=== PATIENT | male | born 1965 | race Caucasian/White ===

== ENCOUNTER 2018-11-29 08:59 | Outpatient (CLI) | payer OTHER ==
--- NOTE | 2018-11-29 10:14 | RAD ---
MRI SCREENING ORBITS 1 VIEW: HISTORY: MRI safety clearance. History of working with metal. FINDINGS/IMPRESSION: No metallic foreign bodies are seen over either orbit. POS: [facility]
--- NOTE | 2018-11-29 11:04 | MRI ---
MRI OF RIGHT SHOULDER PERFORMED WITHOUT CONTRAST ENHANCEMENT: HISTORY: Right shoulder pain. Pain began in August when the patient was lifting a generator. FINDINGS: There are edema changes associated with the AC joint and irregularity to the distal end of the clavic le suggesting that this possibly represents an older fracture. There does appear to be some edema ch antonio associated with the distal end of the clavicle. The joint appears slightly widened, but there i s otherwise normal alignment and the coracoclavicular ligament is intact. Edema change tracks anteri placido from this level. The underlying supra- and infraspinatus tendons are intact. Subscapularis muscle and tendon are also intact and the biceps tendon is normal in position within the bicipital groove. Labrum is not well assessed on this examination; however, there are findings suspicious for a SLAP-ty pe tear of the posterior superior labrum. The inferior glenohumeral ligament is intact. IMPRESSION: 1. Moderate edema change associated with the acromioclavicular joint. This would indicate that poss ibly there has been an acromioclavicular separation. There is also irregularity to the distal end of the clavicle and some edema change suggesting a fracture. 2. Intact rotator cuff. 3. Findings suspicious for a superior labrum anterior to posterior-type lesion of the posterior supe rior labrum better assessed with MR arthrography. POS: [facility]
== END 2018-11-29 09:00 | disposition home or self-care (01) ==
LOC: BICMRI 08:59
PROVIDERS: ATTEND Orthopaedic Surgery
DX: S43.001A Unspecified subluxation of right shoulder joint, initial encounter (principal)
CPT/HCPCS: 70210

== ENCOUNTER 2021-11-14 12:30 | Inpatient (IN) | payer OTHER ==
[2021-12-01] MEDS ORDERED: Ketorolac Tromethamine 30 MG/ML VIAL ONE ×2 (06:23→07:39)
[2021-12-01] MEDS ORDERED: Acetaminophen 500 MG TAB ONE (06:23)
[2021-12-01] MEDS ORDERED: cefOXitin Sodium/Dextrose 2 GM/50 ML BAG ONE ×2 (06:24→09:07)
[2021-12-01] MEDS ORDERED: Xylocaine 1% w/ Epi 1:100K 10 ML VIAL ONE (06:39)
[2021-12-01] MEDS ORDERED: Bupivacaine 0.25% 10 ML VIAL ONE (06:39)
[2021-12-01] MEDS ORDERED: Iothalamate Meglumine 60% 50 ML VIAL FS ONE (06:39)
[2021-12-01] MEDS ORDERED: Fentanyl 100 MCG/2 ML VIAL ONE ×5 (06:54→15:51)
[2021-12-01] MEDS ORDERED: Midazolam HCl 2 mg/2 ml Vial ONE (06:54)
[2021-12-01] MEDS ORDERED: Lidocaine 1% (PF) 30 ML VIAL ONE (07:00)
[2021-12-01] MEDS ORDERED: Glycopyrrolate 0.2 MG/ML 5 ML SYRINGE ONE (07:39)
[2021-12-01] MEDS ORDERED: PROPOFOL 200 MG/20 ML VIAL ONE (07:39)
[2021-12-01] MEDS ORDERED: Ondansetron PF 4 MG/2 ML Vial ONE ×2 (07:39→18:43)
[2021-12-01] MEDS ORDERED: Bupivacaine HCl 0.5%/Epinephrine 1:200,000/PF 30 ml Vial ONE (07:39)
[2021-12-01] MEDS ORDERED: Vecuronium 10 MG VIAL ONE (07:39)
[2021-12-01] MEDS ORDERED: Phenylephrine 10 MG/ML VIAL ONE (07:39)
[2021-12-01] MEDS ORDERED: Dexamethasone 20 MG/5 ML VIAL ONE (07:39)
[2021-12-01] MEDS ORDERED: Rocuronium Bromide 10 MG/ML (10ML VIAL) ONE (07:39)
[2021-12-01] MEDS ORDERED: Methylene Blue 50 MG/10 ML AMPUL ONE (09:38)
[2021-12-01] MEDS ORDERED: Meperidine HCl/PF 25 MG/ML VIAL ONE (12:43)
[2021-12-01] MEDS ORDERED: Ondansetron PF 4 MG/2 ML Vial IVP PRN (13:17)
[2021-12-01] MEDS ORDERED: hydrALAZINE 20 MG/ML VIAL SLOW IVP PRN (13:17)
[2021-12-01] MEDS ORDERED: Morphine 4 MG/ML VIAL SLOW IVP PRN ×2 (13:48→13:49)
[2021-12-01] MEDS ORDERED: Promethazine HCl 25 MG/ML VIAL ONE (13:48)
[2021-12-01] MEDS ORDERED: hydrALAZINE 20 MG/ML VIAL ONE (14:28)
[2021-12-01] MEDS: cefOXitin Sodium 1 GM in Sodium Chloride 0.9% 100 ML IVPB SCH ×2 (19:55→20:41)
[2021-12-01] MEDS: Ketorolac Tromethamine 30 MG/ML VIAL IVP SCH (19:55)
[2021-12-01] MEDS: D5 1/2 NS w/20 mEq KCL 1,000 ML IV SCH ×2 (20:40→22:20)
[2021-12-01] MEDS: Famotidine/PF 20 mg/2ml Vial SLOW IVP SCH (20:40)
[2021-12-01] MEDS: Famotidine 20 MG TAB PO SCH (20:41)
[2021-12-01] MEDS: Promethazine HCl 25 MG/ML VIAL IM PRN (22:24)
[2021-12-01 23:31] VITALS: BMI 24.2
[2021-12-02] MEDS: Ketorolac Tromethamine 30 MG/ML VIAL IVP SCH ×5 (00:02→23:39)
[2021-12-02 06:24] LABS: #Lymphocytes 1.1 thou/uL (1.20-3.40); %Eosinophils 0.1 % (0.0-10.0); %Lymphocytes 8.5 % (21.0-51.0); %Monocytes 7.6 % (0.0-10.0); %Neutrophils 83.8 % (42.0-75.0); Hemoglobin 13.1 g/dL (14.0-18.0); Mean Corpuscular HGB CONC 34.1 g/dL (32.0-36.0); Mean Corpuscular Hemoglobin 30.7 pg (27.0-31.0); Mean Corpuscular Volume 90.1 fL (78.0-98.0); Mean Platelet Volume 7.2 fL (7.4-10.4); Platelet Count 312 thou/uL (130-400); RBC Distribution Width 12.4 % (11.5-14.5); Red Blood Cell (RBC) Count 4.25 mill/uL (4.70-6.10); White Blood Cell (WBC) Count 13.1 thou/uL (4.8-10.8)
[2021-12-02 06:53] LABS: Anion Gap 14 mmol/L (10-20); BUN (Urea Nitrogen) 14 mg/dL (8.4-25.7); Calc. Creatinine Clearance 88 mL/min (70-130); Calcium 9.3 mg/dL (7.8-10.44); Carbon Dioxide 22 mmol/L (22-29); Chloride 106 mmol/L (98-107); Glucose 121 mg/dL (70-105); Sodium 138 mmol/L (136-145)
[2021-12-02] MEDS ORDERED: HYDROcodone/Acetaminophen 7.5/325 mg Tablet PO PRN (07:57)
[2021-12-02] MEDS: Promethazine HCl 25 MG/ML VIAL IM PRN (08:12)
[2021-12-02] MEDS: Famotidine/PF 20 mg/2ml Vial SLOW IVP SCH ×2 (11:13→20:59)
[2021-12-02] MEDS: Enoxaparin Sodium 40 MG/0.4 ML SYRINGE SC SCH (11:14)
[2021-12-02] MEDS: Morphine 4 MG/ML VIAL SLOW IVP PRN (12:00)
[2021-12-02] MEDS: HYDROcodone/Acetaminophen 7.5/325 mg Tablet PO PRN ×2 (14:44→19:36)
[2021-12-02] MEDS: D5 1/2 NS w/20 mEq KCL 1,000 ML IV SCH ×2 (15:12→18:10)
[2021-12-02] MEDS: Famotidine 20 MG TAB PO SCH ×2 (15:13→20:34)
[2021-12-03] MEDS: D5 1/2 NS w/20 mEq KCL 1,000 ML IV SCH ×2 (01:10→09:18)
[2021-12-03] MEDS: Morphine 4 MG/ML VIAL SLOW IVP PRN (04:14)
[2021-12-03] MEDS: Ketorolac Tromethamine 30 MG/ML VIAL IVP SCH ×2 (05:06→11:42)
[2021-12-03 05:42] LABS: #Lymphocytes 1.7 thou/uL (1.20-3.40); #Monocytes 0.6 thou/uL (0.11-0.59); #Neutrophils 6.7 thou/uL (1.40-6.50); %Basophils 0.4 % (0.0-1.0); %Eosinophils 0.4 % (0.0-10.0); %Lymphocytes 18.5 % (21.0-51.0); %Monocytes 7.1 % (0.0-10.0); %Neutrophils 73.7 % (42.0-75.0); Hemoglobin 11.8 g/dL (14.0-18.0); Mean Corpuscular HGB CONC 33.2 g/dL (32.0-36.0); Mean Corpuscular Hemoglobin 29.8 pg (27.0-31.0); Mean Corpuscular Volume 89.9 fL (78.0-98.0); Mean Platelet Volume 7.5 fL (7.4-10.4); Platelet Count 280 thou/uL (130-400); RBC Distribution Width 12.2 % (11.5-14.5); Red Blood Cell (RBC) Count 3.98 mill/uL (4.70-6.10)
[2021-12-03 06:00] LABS: Anion Gap 11 mmol/L (10-20); BUN (Urea Nitrogen) 10 mg/dL (8.4-25.7); Calc. Creatinine Clearance 101 mL/min (70-130); Calcium 8.8 mg/dL (7.8-10.44); Carbon Dioxide 23 mmol/L (22-29); Chloride 106 mmol/L (98-107); Glucose 102 mg/dL (70-105); Sodium 136 mmol/L (136-145)
[2021-12-03] MEDS: Enoxaparin Sodium 40 MG/0.4 ML SYRINGE SC SCH (09:12)
[2021-12-03] MEDS: Saccharomyces boulardii 250 MG CAP PO SCH (09:12)
[2021-12-03] MEDS: Famotidine 20 MG TAB PO SCH (09:12)
[2021-12-03] MEDS: Famotidine/PF 20 mg/2ml Vial SLOW IVP SCH (09:40)
[2021-12-03] MEDS ORDERED: Pantoprazole 40 MG VIAL IVP SCH (13:45)
[2021-12-03] MEDS ORDERED: traMADol HCl 50 MG TAB PO PRN ×2 (15:45)
[2021-12-03] MEDS ORDERED: HYDROcodone/Acetaminophen 7.5/325 mg Tablet PO PRN (15:47)
[2021-12-03] MEDS: Acetaminophen 325 MG TAB PO SCH ×2 (16:24→21:23)
[2021-12-03] MEDS: Ibuprofen 800 MG TAB PO SCH (21:24)
[2021-12-04] MEDS: Acetaminophen 325 MG TAB PO SCH ×4 (04:59→21:30)
[2021-12-04] MEDS: Ibuprofen 800 MG TAB PO SCH ×3 (05:45→21:29)
[2021-12-04] MEDS: Enoxaparin Sodium 40 MG/0.4 ML SYRINGE SC SCH (08:53)
[2021-12-04] MEDS: Saccharomyces boulardii 250 MG CAP PO SCH (08:53)
[2021-12-04] MEDS: Pantoprazole 40 MG GRANULES PACKET PO SCH (08:53)
[2021-12-05] MEDS: Acetaminophen 325 MG TAB PO SCH ×2 (03:58→09:41)
[2021-12-05] MEDS: Ibuprofen 800 MG TAB PO SCH (05:20)
[2021-12-05 08:12] VITALS: BP 135/87; TEMP 98.3
[2021-12-05] MEDS: Enoxaparin Sodium 40 MG/0.4 ML SYRINGE SC SCH (09:00)
[2021-12-05] MEDS ORDERED: Tamsulosin HCl 0.4 MG CAP PO SCH (09:00)
[2021-12-05] MEDS: Saccharomyces boulardii 250 MG CAP PO SCH (09:00)
[2021-12-05] MEDS: Pantoprazole 40 MG GRANULES PACKET PO SCH (09:00)
[2021-12-05] MEDS ORDERED: FLU VACC QS2021-22(6MOS UP)/PF 60 MCG/0.5 ML SYRINGE IM ONE (09:00)
== END 2021-12-05 10:15 | disposition home or self-care (01) | DRG 661 ==
LOC: SURG A 12-01 06:09
PROVIDERS: ADMIT Surgery; ATTEND Surgery
PROC: 0DBN0ZZ Excision of Sigmoid Colon, Open Approach (ICD-10-PCS; principal; 2021-12-01)
PROC: 0T788DZ Dilation of Bilateral Ureters with Intraluminal Device, Via Natural or Artificial Opening Endoscopic (ICD-10-PCS; 2021-12-01)
PROC: 0DBM0ZZ Excision of Descending Colon, Open Approach (ICD-10-PCS; 2021-12-01)
DX: N32.1 Vesicointestinal fistula (principal); Z20.822 Contact with and (suspected) exposure to COVID-19; K57.30 Diverticulosis of large intestine without perforation or abscess without bleeding; Z79.899 Other long term (current) drug therapy; Z98.890 Other specified postprocedural states; Z83.3 Family history of diabetes mellitus; Z82.49 Family history of ischemic heart disease and other diseases of the circulatory system; Z88.1 Allergy status to other antibiotic agents; Z88.3 Allergy status to other anti-infective agents; Z88.2 Allergy status to sulfonamides
CPT/HCPCS: 36415; 80048; 85025; 88307; 88309; A4649; C1776; C9113; J0360; J0694; J1100; J1650; J1885; J2001; J2175; J2250; J2270; J2370; J2405; J2550; J2704; J3010; J3480; J3490; Q9961-U8; Q9968; S0020; S0028

== ENCOUNTER 2021-11-28 13:28 | Outpatient (CLI) | payer OTHER ==
[2021-11-28 15:15] LABS: #Basophils 0.1 10x3/uL (0.0-0.2); #Eosinphils 0.3 10x3/uL (0.0-0.5); #Monocytes 0.7 10x3/uL (0.0-1.1); #Neutrophils 6.3 10x3/uL (1.5-8.4); %Basophils 0.9 % (0.0-2.0); %Eosinophils 3.2 % (0.0-6.0); %Lymphocytes 22.9 % (18.0-47.0); %Monocytes 6.9 % (0.0-10.0); %Neutrophils 65.8 % (40.0-75.0); Hemoglobin 13.3 g/dL (13.5-17.5); Mean Corpuscular Hemoglobin 28.3 pg (27.0-33.0); Mean Corpuscular Volume 88.3 fl (81.2-95.1); Mean Platelet Volume 10.5 fl (7.4-10.4); Platelet Count 375 10x3/uL (150-450); RBC Distribution Width 12.8 % (11.5-14.5); White Blood Cell (WBC) Count 9.6 10x3/uL (3.5-10.5)
[2021-11-28 15:33] LABS: ALT (SGPT) 17 U/L (8-55); AST (SGOT) 18 U/L (5-34); Albumin 4.4 g/dL (3.5-5.0); Alkaline Phosphatase 61 U/L (40-110); Anion Gap 14 mmol/L (10-20); BUN (Urea Nitrogen) 16 mg/dL (8.4-25.7); Bilirubin, Total 0.3 mg/dL (0.2-1.2); Calc. Creatinine Clearance 0 mL/min (70-130); Calcium 9.5 mg/dL (7.8-10.44); Carbon Dioxide 26 mmol/L (22-29); Chloride 104 mmol/L (98-107); Globulin 2.7 g/dL (2.4-3.5); Glucose 94 mg/dL (70-105); Potassium 4.4 mmol/L (3.5-5.1); Protein, Total 7.1 g/dL (6.0-8.3); Sodium 140 mmol/L (136-145)
[2021-11-28 20:22] LABS: Hemoglobin A1c 5.3 % (4.0-6.0)
[2021-11-29 11:36] LABS: SARS-CoV-2 PCR by NAA Not Detected (NotDetected)
== END 2021-11-28 13:29 | disposition home or self-care (01) ==
LOC: LABBT 13:28
PROVIDERS: ATTEND Surgery
DX: Z01.818 Encounter for other preprocedural examination (principal); Z20.822 Contact with and (suspected) exposure to COVID-19
CPT/HCPCS: 80053; 83036; 85025; 93005; 93010; U0003; U0005

== ENCOUNTER 2022-04-11 11:00 | Outpatient (CLI) | payer OTHER ==
[2022-04-11 11:54] LABS: #Basophils 0.1 10x3/uL (0.0-0.2); #Eosinphils 0.3 10x3/uL (0.0-0.5); #Monocytes 0.5 10x3/uL (0.0-1.1); %Lymphocytes 28.6 % (18.0-47.0); %Monocytes 6.6 % (0.0-10.0); %Neutrophils 58.7 % (40.0-75.0); Hemoglobin 13.9 g/dL (13.5-17.5); Mean Corpuscular HGB CONC 32.7 g/dL (32.0-36.0); Mean Corpuscular Volume 85.5 fl (81.2-95.1); Mean Platelet Volume 10.8 fl (7.4-10.4); Platelet Count 289 10x3/uL (150-450); RBC Distribution Width 13.9 % (11.5-14.5); Red Blood Cell (RBC) Count 4.97 10x6/uL (4.32-5.72); White Blood Cell (WBC) Count 6.9 10x3/uL (3.5-10.5)
[2022-04-11 12:14] LABS: Anion Gap 15 mmol/L (10-20); BUN (Urea Nitrogen) 14 mg/dL (8.4-25.7); Calc. Creatinine Clearance 0 mL/min (70-130); Calcium 9.5 mg/dL (7.8-10.44); Carbon Dioxide 26 mmol/L (22-29); Chloride 104 mmol/L (98-107); Glucose 106 mg/dL (70-105); Potassium 4.2 mmol/L (3.5-5.1); Sodium 141 mmol/L (136-145)
[2022-04-12 00:54] LABS: SARS-CoV-2 PCR by NAA Not Detected (NotDetected)
== END 2022-04-11 11:01 | disposition home or self-care (01) ==
LOC: LABBT 11:00
PROVIDERS: ATTEND Surgery
DX: Z01.812 Encounter for preprocedural laboratory examination (principal); K43.9 Ventral hernia without obstruction or gangrene; Z20.822 Contact with and (suspected) exposure to COVID-19
CPT/HCPCS: 80048; 85025; U0003; U0005

== ENCOUNTER 2022-04-14 06:02 | Day surgery (SDC) | payer OTHER ==
[2022-04-12 12:50] VITALS: BMI 23.5
[2022-04-14] MEDS ORDERED: CEFAZOLIN 2 GM VIAL ONE (06:53)
[2022-04-14] MEDS ORDERED: Acetaminophen 500 MG TAB ONE (06:53)
[2022-04-14] MEDS ORDERED: Sodium Chloride 0.9% 100 ML ONE (06:53)
[2022-04-14] MEDS ORDERED: Fentanyl 250 MCG/5 ML VIAL ONE (07:28)
[2022-04-14] MEDS ORDERED: Famotidine/PF 20 mg/2ml Vial ONE (07:37)
[2022-04-14] MEDS ORDERED: Scopolamine 1.5 mg/72 hour Patch ONE (07:37)
[2022-04-14] MEDS ORDERED: Lidocaine 1% w/Epinephrine 1:100K 20 ML VIAL ONE (09:36)
[2022-04-14] MEDS ORDERED: Bupivacaine 0.25% 10 ML VIAL ONE (09:36)
[2022-04-14] MEDS ORDERED: Midazolam HCl 2 mg/2 ml Vial ONE (09:58)
[2022-04-14] MEDS ORDERED: SUGAMMADEX SODIUM 200 MG/2 ML VIAL ONE (10:03)
[2022-04-14] MEDS ORDERED: Lidocaine 1% PF 5 ML VIAL ONE (10:10)
[2022-04-14] MEDS ORDERED: Glycopyrrolate 0.2 MG/ML 5 ML SYRINGE ONE (10:10)
[2022-04-14] MEDS ORDERED: PROPOFOL 200 MG/20 ML VIAL ONE (10:10)
[2022-04-14] MEDS ORDERED: Ondansetron PF 4 MG/2 ML Vial ONE (10:10)
[2022-04-14] MEDS ORDERED: Ketorolac Tromethamine 30 MG/ML VIAL ONE (10:10)
[2022-04-14] MEDS ORDERED: Vecuronium 10 MG VIAL ONE (10:10)
[2022-04-14] MEDS ORDERED: Dexamethasone 20 MG/5 ML VIAL ONE (10:10)
[2022-04-14] MEDS ORDERED: PHENYLEPHRINE-NS 100 MCG/ML 10 ML SYRINGE ONE (10:10)
[2022-04-14] MEDS ORDERED: Rocuronium Bromide 10 MG/ML (10ML VIAL) ONE (10:10)
[2022-04-14] MEDS ORDERED: Meperidine HCl/PF 25 MG/ML VIAL ONE (13:45)
[2022-04-14] MEDS ORDERED: Fentanyl 100 MCG/2 ML VIAL ONE ×2 (13:52→14:22)
[2022-04-14] MEDS ORDERED: HYDROcodone/Acetaminophen 5/325 mg Tablet ONE (15:17)
[2022-04-14] MEDS ORDERED: Morphine 2 MG/ML VIAL ONE (16:14)
== END 2022-04-14 17:40 | disposition home or self-care (01) ==
LOC: SDC 06:02
PROVIDERS: ATTEND Surgery
PROC: 0WUF4JZ Supplement Abdominal Wall with Synthetic Substitute, Percutaneous Endoscopic Approach (ICD-10-PCS; principal; 2022-04-14)
DX: K43.2 Incisional hernia without obstruction or gangrene (principal); Z79.899 Other long term (current) drug therapy; Z88.1 Allergy status to other antibiotic agents; Z88.2 Allergy status to sulfonamides; Z90.49 Acquired absence of other specified parts of digestive tract
CPT/HCPCS: C1781; J1100; J1885; J2175; J2250; J2270; J2405; J2704; J3010; J3490; S0020; S0028